=== PATIENT | male | born 1990 | race Caucasian/White ===

== ENCOUNTER 2017-09-04 21:41 | Emergency (ER) | payer MEDICAID ==
--- NOTE | 2017-09-04 21:52 | EDPHY ---
H & P Stated Complaint: ETOH/ tazed by PD Time Seen by Provider: 09/04/17 21:49 HPI/ROS: HPI CHIEF COMPLAINT: Medical clearance for half-way. Tazed. HISTORY OF PRESENT ILLNESS: 27-year-old male, otherwise healthy denies any significant medical history presents emergency room with police in handcuffs after was Tazed. According to police he was intoxicated alcohol the make contact with him he became immediately violent with them requiring a stone [place] into the back. He was placed in handcuffs brought to emergency room for medical clearance for half-way. He has an abrasion to his left knee. Otherwise atraumatic exam. Unclear how much he had to drink tonight but does appear intoxicated upon arrival to the emergency room. Patient to me denies any medical problems or drug use. Past Medical History: Denies significant medical history Past Surgical History: Denies surgical history Social History: Alcohol this evening. Large amount. Denies other drugs. Family History: Noncontributory ROS REVIEW OF SYSTEMS: A comprehensive 10 point review of systems is otherwise negative aside from elements mentioned in the history of present illness. Exam Constitutional intoxicated with alcohol, smells of alcohol, slurring speech, somewhat agitated in handcuffs, triage nursing summary reviewed, vital signs reviewed, awake/alert. Eyes normal conjunctivae and sclera, EOMI, PERRLA. HENT normal inspection, atraumatic, moist mucus membranes, no epistaxis, neck supple/ no meningismus, no raccoon eyes. Respiratory clear to auscultation bilaterally, normal breath sounds, no respiratory distress, no wheezing. Cardiovascular rate normal, regular rhythm, no murmur, no edema, distal pulses normal. Gastrointestinal soft, non-tender, no rebound, no guarding, normal bowel sounds, no distension, no pulsatile mass. Genitourinary no CVA tenderness. Musculoskeletal no midline vertebral tenderness, full range of motion, no calf swelling, no tenderness of extremities, no meningismus, good pulses, neurovascularly intact. Skin 2 puncture garcia the mid thoracic back consistent with a taste from a taze from a stun gun. Neurologic awake, alert and oriented x 3, AAOx3, moves all 4 extremities equally, motor intact, sensory intact, CN II-XII intact, normal cerebellar, normal vision, slurring speech. Psychiatric agitated and intoxicated with alcohol Heme/Lymph/Immune no lymphadenopathy. Differential Diagnosis: Includes but is not limited to in a particular order aggressive behavior, medical clearance for half-way after being tazed, alcohol intoxication, knee abrasion. Medical Decision Making: Plan for this patient 1 medically cleared for half-way. Patient's vital signs are stable. He did drink alcohol tonight. He is in police custody. Re-evaluation: Source: Patient - Personal History Current Tetanus/Diphtheria Vaccine: Unsure Current Tetanus Diphtheria and Acellular Pertussis (TDAP): Unsure - Medical/Surgical History Hx Asthma: No Hx Chronic Respiratory Disease: No Hx Diabetes: No Hx Cardiac Disease: No Hx Renal Disease: No Hx Cirrhosis: No Hx Alcoholism: No Hx HIV/AIDS: No Hx Splenectomy or Spleen Trauma: No Other PMH: denies - Social History Smoking Status: Unknown if ever smoked Constitutional: Initial Vital Signs Temperature (C) 36.0 C 09/04/17 21:47 Heart Rate 99 09/04/17 21:47 Respiratory Rate 18 09/04/17 21:47 Blood Pressure 102/95 H 09/04/17 21:47 O2 Sat (%) 99 09/04/17 21:47 O2 Delivery Mode Room Air Allergies/Adverse Reactions: Unable to Assess Allergy (Unverified 09/04/17 21:49) Home Medications: Medication Instructions Recorded Unobtainable 09/04/17 Departure - Departure Disposition: Home, Routine, Self-Care Clinical Impression: Alcoholic intoxication Qualifiers: Complication of substance-induced condition: uncomplicated Qualified Code(s): F10.920 - Alcohol use, unspecified with intoxication, uncomplicated Condition: Good Instructions: Alcohol Intoxication (ED) Additional Instructions: 1. Medically cleared for half-way. Referrals: Patient,NotPresent [Primary Care Provider] - As per Instructions
[2017-09-04 22:19] VITALS: BP 154/70
== END 2017-09-04 22:27 | disposition home or self-care (01) ==
DX: F10.920 Alcohol use, unspecified with intoxication, uncomplicated (principal)

== ENCOUNTER 2017-09-05 22:36 | Emergency (ER) | payer MEDICAID ==
--- NOTE | 2017-09-05 22:46 | EDPHY ---
H & P Time Seen by Provider: 09/05/17 22:42 HPI/ROS: HPI: This is a 27-year-old male who presents with Chief Complaint: Left knee pain Location: Left knee Quality: Pain Duration: Several days Signs and Symptoms: No bleeding, no radiation, no numbness, no weakness, no tingling, no incontinence, + decreased range of motion, + swelling, + pain, no fever Timing: Gradually worsening Severity: Moderate Context: Patient presents via EMS with complaints of left knee injury while running from the police approximately 2 days ago. Patient was intoxicated with alcohol and belligerent. Patient reports that while at [facility] he was able to walk but "had to hop around." Patient reports that he has had progressive swelling in the anterior portion of his knee. Complains of medial knee pain that worsens with flexion. Denies LOC/head injury/neck pain/dizziness/nausea/ vomiting/amnesia. Modifying Factors: He has not taking any [id number] pain medications or applied ice Comment: ROS: see HPI Constitutional: No fever, no chills, no weight loss Eyes: No blurred vision Respiratory: No shortness of breath, no cough Cardiovascular: No chest pain Gastrointestinal: No nausea, no vomiting no diarrhea Genitourinary: No dysuria Extremities: No myalgias Neurologic: No weakness, no numbness Skin: No rashes Hematologic: No bruising, no bleeding MEDICAL/SURGICAL/SOCIAL HISTORY: Medical history: Alcoholism Surgical history: Right ankle surgery Social history: Originally from [place]. Moved out to the area 2 weeks ago to move closer to his girlfriend. CONSTITUTIONAL: awake and alert, no obvious distress HEENT: Atraumatic and normocephalic. EXTREMITIES: 2/2 pulses, strength 5/5, left KNEE: Moderate effusion, moderate medial joint line tenderness and no lateral joint line tenderness, full extension to 180, flexion to 120. No pain with varus exam. + pain with valgus exam. No pain with anterior drawer or posterior drawer test. DIP/PIP/ MCP flexion/extension intact with good light touch sensation. no deformities, no clubbing, no cyanosis or edema. NEUROLOGICAL: no focal neuro deficits. GCS 15. Light touch sensation intact. SKIN: Warm and dry, no erythema. no rash. Good capillary refill. Source: Patient Exam Limitations: No limitations - Medical/Surgical History Hx Asthma: No Hx Chronic Respiratory Disease: No Hx Diabetes: No Hx Cardiac Disease: No Hx Renal Disease: No Hx Cirrhosis: No Hx Alcoholism: No Hx HIV/AIDS: No Hx Splenectomy or Spleen Trauma: No Other PMH: denies - Social History Smoking Status: Unknown if ever smoked Constitutional: Initial Vital Signs Temperature (C) 36.6 C 09/05/17 22:36 Heart Rate 89 09/05/17 22:36 Respiratory Rate 16 09/05/17 22:36 Blood Pressure 157/100 H 09/05/17 22:36 O2 Sat (%) 96 09/05/17 22:36 O2 Delivery Mode Room Air Allergies/Adverse Reactions: No Known Allergies Allergy (Verified 09/05/17 22:44) Home Medications: Medication Instructions Recorded NK [No Known Home Meds] 09/05/17 Medical Decision Making Procedures: Procedure: Splint placement. A right knee immobilizer was applied by the Emergency Room voice and data technician. After application of the splint I returned and re-examined the patient. The splint was adequately immobilizing the joint and distal to the splint the patient's circulation and sensation was intact. ED Course/Re-evaluation: Left knee x-ray ordered. My read shows + transverse nondisplaced patellar fracture. + moderate suprapatellar effusion noted. Suspect MCL injury Placed in knee immobilizer and given crutches Given Percocet x1. No signs of neurovascular compromise/tenting of skin/compartment syndrome/ extremities and joints examined above and below area of concern and are neurovascularly intact. This patient was seen under the supervision of my secondary supervising physician. I evaluated care for this patient independently. Discussed this patient with Dr. Catalan who did not see the patient. Differential Diagnosis: Knee injury while [] including but not limited to fracture, ACL injury, contusion, muscular strain, and meniscus injury. Departure - Departure Disposition: Home, Routine, Self-Care Clinical Impression: Effusion of left knee Knee MCL sprain Qualifiers: Encounter type: initial encounter Laterality: left Qualified Code(s): S83.412A - Sprain of medial collateral ligament of left knee, initial encounter Left patella fracture Qualifiers: Encounter type: initial encounter Fracture type: closed Fracture morphology: transverse Fracture alignment: nondisplaced Qualified Code(s): S82.035A - Nondisplaced transverse fracture of left patella, initial encounter for closed fracture Condition: Good Instructions: Knee Sprain (ED), Knee Immobilizer (ED) Additional Instructions: Wear the knee immobilizer while out of bed until pain free or seen by Orthopedics. Use crutches to aid ambulation. Start with toe-touch weight-bearing status. Take Tylenol 650 mg every 4 hours and/or Ibuprofen 600 mg every 8 hours with food as needed for pain. Apply ice for 30 minutes at a time; 2-3 times per day for the next 1-2 days. Follow up with Orthopedics in 7-10 days at which time they will evaluate and recommend with you if conservative management versus MRI knee is indicated. Referrals: Ubaldo Zurita MD [Medical Doctor] - As per Instructions [facility],. [Clinic] - As per Instructions
[2017-09-05] MEDS ORDERED: OXYCODONE/APAP 5/325 TAB PO ONE (22:54)
[2017-09-05 22:59] VITALS: BP 145/98
== END 2017-09-05 23:29 | disposition home or self-care (01) ==
LOC: EDUNIT#
DX: S82.035A Nondisplaced transverse fracture of left patella, initial encounter for closed fracture (principal); S83.412A Sprain of medial collateral ligament of left knee, initial encounter; M25.462 Effusion, left knee; X50.9XXA Other and unspecified overexertion or strenuous movements or postures, initial encounter; Y92.148 Other place in prison as the place of occurrence of the external cause; Y99.8 Other external cause status; Y93.02 Activity, running
CPT/HCPCS: L1830